=== PATIENT | male | born 1995 | race African-American/Black ===

== ENCOUNTER 2025-06-16 23:08 | Emergency (ER) | payer OTHER ==
[~2025-06-16] VITALS: Ht 188 cm; Wt 118.0 kg
[2025-06-16] MEDS: DIPHENHYDRAMINE 50MG/ML VIAL IM ONE (23:40)
[2025-06-16] MEDS: HALOPERIDOL LACTATE 5MG/ML VIAL IM ONE (23:40)
[2025-06-17 00:09] LABS: CLARITY URINE CLEAR (CLEAR); COLOR URINE YELLOW (YELLOW); GLUCOSE URINE NEGATIVE (NEGATIVE); KETONES URINE 3+ (NEGATIVE); LEUKOCYTE ESTERASE URINE TRACE (NEGATIVE); NITRITE URINE NEGATIVE (NEGATIVE); OCCULT BLOOD URINE NEGATIVE (NEGATIVE); PH URINE 5.5 (4.5-8.0); PROTEIN URINE 1+ (NEGATIVE); SPECIFIC GRAVITY URINE 1.017 (1.005-1.030); UROBILINOGEN URINE 0.2 E.U./dL (0.2-1.0)
[2025-06-17 00:10] LABS: BASOPHILS % 0.7 % (0.0-2.0); EOSINOPHILS % 0.1 % (0.0-5.0); HEMATOCRIT. 42.0 % (42.0-52.0); HEMOGLOBIN. 14.1 g/dL (14.0-18.0); LYMPHOCYTES % 17.3 % (20.0-50.0); MEAN PLATELET VOLUME 8.4 fl (7.4-10.4); MONOCYTES % 5.8 % (2.0-8.0); NEUTROPHILS % 76.1 % (40.0-76.0); PLATELET 185 x1000/uL (130-400); RED BLOOD CELL COUNT 4.61 mill/uL (4.7-6.1); RED CELL DISTRIBUTION WIDTH 13.6 % (11.6-14.6)
[2025-06-17 00:18] LABS: *AMPHETAMINES SCREEN URINE NEGATIVE (NEGATIVE); *BARBITURATES SCREEN URINE NEGATIVE (NEGATIVE); *BENZODIAZEPINES SCREEN URINE PRESUMPTIVE POSITIVE (NEGATIVE); *COCAINE SCREEN URINE NEGATIVE (NEGATIVE); ECSTASY MDMA SCREEN URINE NEGATIVE (NEGATIVE); METHADONE URINE SCREEN NEGATIVE (NEGATIVE); OPIATES URINE SCREEN NEGATIVE (NEGATIVE); PHENCYCLIDINE URINE SCREEN NEGATIVE (NEGATIVE)
[2025-06-17 00:29] LABS: CREATININE 1.6 mg/dL (0.6-1.3); UREA NITROGEN BLOOD 15 mg/dL (9-23)
[2025-06-17 00:30] LABS: ETHANOL BLOOD < 10 mg/dL (<10)
[2025-06-17 00:31] LABS: ASPARTATE AMINOTRANSFERASE 118 IU/L (<34); BILIRUBIN DIRECT 0.6 mg/dL (<=3.0)
[2025-06-17 00:32] LABS: BILIRUBIN TOTAL 2.0 mg/dL (0.1-1.0); PROTEIN TOTAL 7.7 g/dL (6.0-8.3)
[2025-06-17 00:36] LABS: CANNABINOID URINE SCREEN PRESUMPTIVE POSITIVE (NEGATIVE)
[2025-06-17 00:45] LABS: SQUAMOUS EPITHELIAL CELL URINE RARE /lpf (RARE/1+)
[2025-06-17 00:46] LABS: BACTERIA URINE TRACE; COARSE GRANULAR CASTS URINE 0-5 /lpf; RBC URINE NONE SEEN /hpf (0-2)
[2025-06-17] MEDS: KETAMINE HCL 50 MG/ML 10ML IM ONE (00:59)
[2025-06-17] MEDS: HALOPERIDOL LACTATE 5MG/ML VIAL IM ONE (00:59)
[2025-06-17 03:00] VITALS: O2SAT 96
[2025-06-17] MEDS: OLANZAPINE 10 MG/VIAL IM ONE (10:13)
[2025-06-17 15:33] VITALS: BP 116/68; PULSE 75; RESP 18; TEMP 36.6; O2SAT 100
[2025-06-17] MEDS ORDERED: OLANZAPINE 5MG TABLET PO SCH (21:00)
== END 2025-06-17 15:35 | disposition short-term general hospital (02) ==
LOC: ER 23:08
DX: R45.1 Restlessness and agitation (principal); F20.9 Schizophrenia, unspecified; F31.9 Bipolar disorder, unspecified; Z20.822 Contact with and (suspected) exposure to COVID-19; Z79.899 Other long term (current) drug therapy
CPT/HCPCS: 80076; 80305; 80048; 81003; 80307; 80329; 80320; 85025; 36415; 96372 ×2; 99291; 87426; J1200; J1630; J2060 ×2; J3490 ×2; Z7610 ×2; A4606; G0480